=== PATIENT | male | born 1970 | race Caucasian/White ===

== ENCOUNTER → 2017-04-24 | Outpatient (CLI) | payer BC ==
--- NOTE | 2017-04-25 17:09 | PCVCIMAG ---
APPROVED REPORT Study performed: 04/24/2017 09:19:56 EXAM: Comprehensive 2D, Doppler, and color-flow Echocardiogram Patient Location: Echo lab Status: routine BSA: 2.17 HR: 64 bpmBP: 150/96 mmHg Rhythm: NSR Other Information Study Quality: Adequate Indications Paroxysmal A Fib, HTN, Fam HX CAD 2D Dimensions LVEF(%): 54.03 (>50%) IVSd: 11.22 (7-11mm) LVDd: 46.84 mm PWd: 11.22 (7-11mm) LVDs: 33.78 (25-40mm) Left Atrium: 38.39 (27-40mm) Aortic Root: 32.68 mm LV Single Plane 4CH: 66.48 % LV Single Plane 2CH: 60.54 %Galvez's LVEF: 63.51 % Biplane EF: 62.9 % Volumes Left Atrial Volume (Systole) Single Plane 4CH: 64.30 mLSingle Plane 2CH: 73.83 mL LA ESV Index: 33.00 mL/m2 Aortic Valve AoV Peak David.: 1.65 m/s AO Peak Gr.: 10.82 mmHgLVOT Max P.53 mmHg LVOT Max V: 1.37 m/s Mitral Valve E/A Ratio: 1.4 MV Decel. Time: 227.55 ms MV E Max David.: 0.56 m/s MV A David.: 0.41 m/s IVRT: 107.27 ms Pulmonary Valve PV Peak David.: 1.22 m/sPV Peak Gr.: 5.95 mmHg Pulmonary Vein P Vein S: 0.30 m/sP Vein A: 0.35 m/s P Vein D: 0.64 m/sP Vein A Dur.: 145.3 msec P Vein S/D Ratio: 0.47 Tricuspid Valve TR Peak David.: 2.40 m/s TR Peak Gr.: 23.02 mmHg Left Ventricle The left ventricle is normal size. There is normal LV segmental wall motion. There is normal left ventricular wall thickness. Left ventricular systolic function is normal. The left ventricular ejection fraction is within the normal range. LVEF is 60-65%. Grade II - pseudonormal filling dynamics. Right Ventricle The right ventricle is normal size. The right ventricular systolic function is normal. Atria The left atrium size is normal. The right atrium size is normal. Aortic Valve The aortic valve is normal in structure. No aortic regurgitation is present. There is no aortic valvular stenosis. Mitral Valve The mitral valve is normal in structure. Mild mitral regurgitation. No evidence of mitral valve stenosis. Tricuspid Valve The tricuspid valve is normal in structure. Trace tricuspid regurgitation with PAP 30 mmHg. Pulmonic Valve The pulmonary valve is normal in structure. There is mild pulmonic valvular regurgitation. Great Vessels The aortic root is normal in size. IVC is normal in size and collapses with >50% inspiration Pericardium There is no pericardial effusion. <Conclusion> The left ventricle is normal size. LVEF is 60-65%. Grade II - pseudonormal filling dynamics. The right ventricle is normal size. The left atrium size is normal. The aortic valve is normal in structure. Mild mitral regurgitation. Trace tricuspid regurgitation with PAP 30 mmHg. There is no pericardial effusion.
--- NOTE | 2017-04-25 17:52 | PCVCIMAG ---
APPROVED REPORT Patient Location: Echo lab Room #: Stress Nurse: Melissa Mukherjee RN Treadmill Stress Test PCP- Art Ferreira Indications- Paroxysmal A Fib, Fam Hx CAD, HTN, HLP The patient exercised according to the [facility] Protocol for 9 minutes, achieving a maximum work level of 10.4 METS. The resting heart rate of 73 bpm, lucio to a maximal level of 125 bpm. This value represents 72 % of the maximal, age-predicted heart rate. The resting blood pressure of 150/96 mmHg, lucio to a maximum blood pressure of 184/92 mmHg. The exercise was stopped due to fatigue and calf pain. Conclusion #1 no production of chest pain or angina #2 no diagnostic EKG changes consistent with ischemia #3 no significant ectopy was induced #4 good exercise tolerance with an appropriate hemodynamic response
== END | disposition home or self-care (01) ==
LOC: PCVCIMAG 09:46
PROVIDERS: ATTEND Internal Medicine Cardiovascular Disease
DX: I48.0 Paroxysmal atrial fibrillation (principal); I10 Essential (primary) hypertension; I34.0 Nonrheumatic mitral (valve) insufficiency; Z82.49 Family history of ischemic heart disease and other diseases of the circulatory system
CPT/HCPCS: 93017; 93306

== ENCOUNTER → 2019-03-19 | Outpatient (CLI) | payer BC ==
--- NOTE | 2019-03-19 15:46 | PCVCIMAG ---
APPROVED REPORT Study performed: 03/19/2019 13:28:37 EXAM: Comprehensive 2D, Doppler, and color-flow Echocardiogram Patient Location: Echo lab Room #: 2Status: routine BSA: 2.17 HR: 69 bpmBP: 152/102 mmHg Rhythm: NSR Other Information Study Quality: Good Risk Factors: Cardiac Risk Factors: HTN, FHX of CAD, Hyperlipidemia Indications Atrial Fibrillation Hypertension/HDD 2D Dimensions IVSd: 11.00 (7-11mm)LVOT Diam: 21.44 (18-24mm) LVDd: 47.94 mm PWd: 11.00 (7-11mm)Ascending Ao: 35.91 (22-36mm) LVDs: 25.95 (25-40mm) Left Atrium: 30.52 (27-40mm) Aortic Root: 22.22 mm LV Single Plane 4CH: 63.23 % LV Single Plane 2CH: 65.83 % Biplane EF: 63.8 % Volumes Left Atrial Volume (Systole) Single Plane 4CH: 59.90 mLSingle Plane 2CH: 62.35 mL Biplane LA Volume: 64.00 mLLA ESV Index: 30.00 mL/m2 Aortic Valve AoV Peak David.: 1.53 m/s AO Peak Gr.: 9.31 mmHgLVOT Max P.78 mmHg LVOT Max V: 1.20 m/s TAMY Vmax: 2.85 cm2 Mitral Valve E/A Ratio: 1.0 MV Decel. Time: 210.94 ms MV E Max David.: 0.71 m/s MV A David.: 0.73 m/s IVRT: 86.51 ms TDI E/Lateral E': 5.46E/Medial E': 8.88 Medial E' David.: 0.08 m/s Lateral E' David.: 0.13 m/s Pulmonary Valve PV Peak David.: 1.28 m/sPV Peak Gr.: 6.51 mmHg Pulmonary Vein P Vein S: 0.65 m/sP Vein A: 0.36 m/s P Vein D: 0.55 m/sP Vein A Dur.: 86.5 msec P Vein S/D Ratio: 1.18 Tricuspid Valve TR Peak David.: 2.41 m/s TR Peak Gr.: 23.31 mmHg TV Vmax: 0.70 m/sPA Pressure: 30.00 mmHg Left Ventricle The left ventricle is normal size. There is normal LV segmental wall motion. Mild concentric left ventricular hypertrophy. Mild basal septal hypertrophy is present. Left ventricular systolic function is normal. The left ventricular ejection fraction is within the normal range. LVEF is 60-65%. The left ventricular diastolic function is normal. Right Ventricle The right ventricle is normal size. The right ventricular systolic function is normal. Atria The left atrium size is normal. The right atrium size is normal. Aortic Valve Aortic valve is trileaflet. No aortic regurgitation is present. There is no aortic valvular stenosis. Mitral Valve The mitral valve is normal in structure. There is no mitral valve regurgitation noted. No evidence of mitral valve stenosis. Tricuspid Valve The tricuspid valve is normal in structure. Trace tricuspid regurgitation with a PA pressure of 30 mmHg. Borderline pulmonary hypertension. Pulmonic Valve The pulmonary valve is normal in structure. There is no pulmonic valvular regurgitation. Great Vessels The aortic root is normal in size. The ascending aorta is normal in size. Aortic arch is normal in caliber. IVC is normal in size and collapses >50% with inspiration. Pericardium There is no pericardial effusion. There is no pleural effusion. <Conclusion> The left ventricle is normal size. Mild concentric left ventricular hypertrophy. Mild basal septal hypertrophy is present. LVEF is 60-65%. The left ventricular diastolic function is normal. The left atrium size is normal. Aortic valve is trileaflet. There is no mitral valve regurgitation noted. Trace tricuspid regurgitation with a PA pressure of 30 mmHg. Borderline pulmonary hypertension. The aortic root is normal in size. There is no pericardial effusion.
--- NOTE | 2019-03-22 18:07 | PCVCIMAG ---
APPROVED REPORT Patient Location: Echo lab- TREADMILL STRESS TEST Room #: 2 Stress Nurse: Melissa Mukherjee RN INDICATION: HYPERTENSION,HYPERLIPIDEMIA,PAROXYSMAL A FIB, FAMILY HX CAD The patient exercised according to the STEVE protocol for 9:20 minutes; achieving a work level of 11.2 METS. The resting heart rate of 79 bpm lucio to a maximum heart rate of 123 bpm. This value represent 72% of the maximal, age-predicted heart rate. The resting blood pressure of 152/102 mmHg, lucio to a maximum blood pressure of 220/90 mmHg. The exercise test was stopped due to fatigue. Conclusion #1 patient stopped secondary fatigue and shortness of breath no production of chest pain or angina #2 no diagnostic EKG changes consistent with ischemic response occasional unifocal PVCs #3 good exercise tolerance with a moderately hypertensive hemodynamic response Impression: negative treadmill stress test for ischemia moderate hypertensive response is noted. No significant ectopy.
== END | disposition home or self-care (01) ==
LOC: PCVCIMAG 13:31
PROVIDERS: ATTEND Internal Medicine Cardiovascular Disease
DX: I48.0 Paroxysmal atrial fibrillation (principal); I11.9 Hypertensive heart disease without heart failure; E78.49 Other hyperlipidemia; Z82.49 Family history of ischemic heart disease and other diseases of the circulatory system
CPT/HCPCS: 93017; 93306